=== PATIENT | male | born 1965 | race Hispanic/Latino ===

== ENCOUNTER → 2025-06-22 | Emergency (ER) | payer BC ==
[~2025-06-22] VITALS: Ht 172.7 cm; Wt 115.2 kg
[~2025-06-22] MED LIST: GUAI-904 PO; PRED15SO81 PO
[2025-06-22] MEDS: guaiFENesin-DM 200/20MG 10ML PO ONE (01:30)
[2025-06-22 01:37] LABS: IMMATURE GRANULOCYTE ABSOLUTE 0.08 K/uL (0-1); NUCLEATED RED BLOOD CELLS 0.0 % (0.0-0.19); PLATELET COUNT (AUTO) 187 K/uL (130-400); RED BLOOD CELL COUNT(AUTO) 4.93 MIL/uL (4.50-6.20); RED CELL DISTRIBUTION WIDTH 13.0 % (11.0-15.5); WHITE BLOOD COUNT (AUTO) 4.9 K/uL (4.8-10.8)
[2025-06-22 01:40] VITALS: PULSE 84; RESP 18
[2025-06-22 01:41] LABS: CREATININE 1.0 mg/dL (0.5-1.3); GLOMERULAR FILTR. RATE CALC 88.0 mL/min (>90); GLUCOSE,RANDOM 141.0 mg/dL (70-105); SODIUM SERUM 138.0 mmol/L (136-145); UREA NITROGEN, BLOOD 16.0 mg/dL (7-18)
--- NOTE | 2025-06-22 01:41 | ERN ---
ED Note History of Present Illness Stated Complaint: COUGH, SOB Chief Complaint: Shortness of Breath Time Seen by MD: 01:12 Dictation: 59-year-old male presented to the ER complaining of 3 days of cough, subjective fever 2 days ago. Denies chills. Stated that cough worsened with a deep inspiration. Allergies: Coded Allergies: No Known Allergies (Unverified Allergy, Unknown, 06/22/25) Home Meds Active Scripts Prednisolone Sod Phosphate (Prednisolone Sod Phosphate) 15 Mg/5 Ml (5 Ml) Solution, 30 MG PO BID for 3 Days, #60 ML Prov:KENDALL KHALIL MD 06/22/25 Guaifenesin/Dextromethorphan (Mucinex Dm ER 600-30 mg Tablet) 600 Mg-30 Mg Tab.er.12h, 1 TAB PO [id number] PRN for cough and congestion for 7 Days, #14 TAB 0 Refills Prov:KENDALL KHALIL MD 06/22/25 Past Medical History Past Medical History: Hypertension, Other Additional Past Medical Hx: NON COMPLIANT Surgical History: None Review of System Dictation NEGATIVE EXCEPT PER HPI Constitutional: Negative for fever,chills, and weight loss Eyes: Negative for injury, pain,redness, and discharge ENT: Negative for injury,pain or swelling Cardiovascular: denies chest pain, palpitations, and edema Respiratory: Shortness breath reports Abdomen/GI: Negative for abdominal pain, nausea, vomiting, diarrhea, and constipation Back: Negative for injury and pain : Negative for injury, bleeding and discharge MS/Extremity: Negative for injury and deformity Skin: Negative for rash, and discoloration Neuro: Negative for headache, weakness, numbness, tingling, and seizure Psych: Negative for suicide ideation, homicidal ideation, and hallucinations Initial Vital Sign VS Vital Signs Date Time Temp Pulse Resp B/P (MAP) Pulse Ox O2 Delivery O2 Flow Rate FiO2 06/22/25 01:07 98.8 87 20 164/94 97 Room Air 06/22/25 01:20 0 21 Physical Exam Dictation General: awake, alert, NAD Head/Face: Normocephalic, atraumatic Eyes: PERRL, EOMI, vision at baseline ENT: oral cavity clear, TMs clear, no signs of infection Neck: Trachea midline, supple, no nuchal rigidity Cardiovascular: RRR, normal S1/S2, No MRGs, no JVD Respiratory: CTAB, no respiratory distress, No rales or wheezes Abdomen: Soft , no tender Skin: Warm, dry, normal turgor, no rash MS/Extremity: Pulses equal, no cyanosis, neurovascular intact, FROM Neuro: COAx4, GCS 15, strength 5/5, CN 2-12 intact, normal cerebellar exam, normal gait, Psych: Normal behavior, mood, and affect normal Results (Laboratory/Radiology) Laboratory/Radiology Laboratory Tests Test 06/22/25 01:16 06/22/25 01:19 White Blood Count 4.9 K/uL (4.8-10.8) Red Blood Count 4.93 MIL/uL (4.50-6.20) Hemoglobin 14.0 g/dL (14.0-18.0) Hematocrit 42.2 % (42-54) Mean Corpuscular Volume 85.6 fL (79-99) Mean Corpuscular Hemoglobin 28.4 pg (27.0-33.0) Mean Corpuscular Hemoglobin Concent 33.2 g/dL (32.0-36.0) Red Cell Distribution Width 13.0 % (11.0-15.5) Platelet Count 187 K/uL (130-400) Mean Platelet Volume 9.8 fL (7.5-10.5) Immature Granulocyte % (Auto) 1.6 % (0-1) H Neutrophils (%) (Auto) 42.9 % (40.0-77.0) Lymphocytes (%) (Auto) 39.3 % (21.0-51.0) Monocytes (%) (Auto) 11.3 % (3.0-13.0) Eosinophils (%) (Auto) 4.3 % (0.0-8.0) Basophils (%) (Auto) 0.6 % (0.0-5.0) Neutrophils # (Auto) 2.1 K/uL (1.8-7.7) Lymphocytes # (Auto) 1.9 K/uL (1.0-4.8) Monocytes # (Auto) 0.6 K/uL (0.1-1.0) Eosinophils # (Auto) 0.21 K/uL (0.00-0.70) Basophils # (Auto) 0.03 K/uL (0.00-0.20) Absolute Immature Granulocyte (auto 0.08 K/uL (0-1) Segmented Neutrophils % 47 % (40-70) Lymphocytes % (Manual) 41 % (22-44) Monocytes % (Manual) 8 % (2-9) Eosinophils % (Manual) 3 % (1-6) Basophils % (Manual) 1 % (0-2) Nucleated Red Blood Cells 0.0 % (0.0-0.19) Differential Comment MANUAL DIFFERENTIAL White Cell Morphology Comment REACTIVE LYMPHS 1+ Platelet Morphology Comment See comments Red Blood Cell Morphology ANISO 1+ Sodium Level 138 mmol/L (136-145) Potassium Level 3.7 mmol/L (3.5-5.1) Chloride Level 103 mmol/L (101-111) Carbon Dioxide Level 25 mmol/L (21-32) Blood Urea Nitrogen 16 mg/dL (7-18) Creatinine 1.0 mg/dL (0.5-1.3) Glomerular Filtration Rate Calc 88 mL/min (>90) Random Glucose 141 mg/dL (70-105) H Total Calcium 8.1 mg/dL (8.5-10.1) L Troponin I High Sensitivity 5 ng/L (4-75) B-Type Natriuretic Peptide 22 pg/mL (0-100) Influenza Type A Antigen Negative For Type A Influenza Type B Antigen Negative For Type B SARS-CoV-2 Antigen (Rapid) PRESUMPTIVE NEGATIVE ED Course ED Course Orders Procedure Category Date Status Time Cbc With Differential LAB 06/22/25 Complete 01:09 Basic Metabolic Panel LAB 06/22/25 Complete 01:09 B-Type Natriuretic LAB 06/22/25 Complete Peptide 01:09 Troponin I High LAB 06/22/25 Complete Sensitivity 01:09 Chest 1vw RAD 06/22/25 Taken 01:09 Influenza Type A & B, LAB 06/22/25 Complete Rapid 01:13 Covid19 (Sars Antigen LAB 06/22/25 Complete Rapid) 01:13 Ipratropium/Albuterol PHA 06/22/25 Complete Neb (Duoneb) 01:30 Guaifenesin/Dextromethorphan PHA 06/22/25 Complete (Mucinex Dm 01:30 Guaifenesin-Dm PHA 06/22/25 Complete 200/20mg 10ml 01:30 Ipratropium/Albuterol PHA 06/22/25 Complete Neb (Duoneb) 02:00 Manual Differential LAB 06/22/25 Complete 01:16 Methylprednisolone PHA 06/22/25 Complete Succ 40mg (Solu-Medro 02:00 Current Medications Medications (Trade) Dose Ordered Sig/[place] Route PRN Reason Start Time Stop Time Status Last Admin Dose Admin Albuterol (DUOneb) 1 udvial ONCE ONCE IH 06/22/25 02:00 06/22/25 02:01 DC 06/22/25 01:39 Albuterol (DUOneb) 3 udvial ONCE ONCE IH 06/22/25 01:30 06/22/25 01:36 DC Guaifenesin/ Dextromethorphan (MUCinex DM 1 EACH TAB.SR.12H) 1 each ONCE ONCE PO 06/22/25 01:30 06/22/25 01:23 DC Guaifenesin/ Dextromethorphan (RobiTUSSin DM 200/20MG 10ML) 10 ml ONCE ONCE PO 06/22/25 01:30 06/22/25 01:31 DC 06/22/25 01:30 Methylprednisolone Sodium Succinate (Solu-medROL 40MG) 40 mg ONCE ONCE IVP 06/22/25 02:00 06/22/25 02:01 DC 06/22/25 02:06 Vital Signs Date Time Temp Pulse Resp B/P (MAP) Pulse Ox O2 Delivery O2 Flow Rate FiO2 06/22/25 01:40 84 18 06/22/25 01:20 88 18 164/92 97 Room Air* 0 21 06/22/25 01:07 98.8 87 20 164/94 97 Room Air Medical Decision Making MDM 59-year-old male with a past medical history of hypertension who presented with a cough x4 days with a subjective fever. Reports worsened cough with a deep inspiration. Differential: -pneumonia -influenza -COVID -reactive airway Laboratory ordered in triage including CBC, BMP, troponin Imagings x-ray is ordered of chest Ordered DuoNeb Ordered guaifenesin DX & DISP Disposition: Discharge Departure Impression: Primary Impression: Cough in adult Additional Impression: Reactive airway disease Condition: Stable Scripts Prednisolone Sod Phosphate (Prednisolone Sod Phosphate) 15 Mg/5 Ml (5 Ml) Solution 30 MG PO BID for 3 Days, #60 ML Prov: KENDALL KHALIL MD 06/22/25 Guaifenesin/Dextromethorphan (Mucinex Dm ER 600-30 mg Tablet) 600 Mg-30 Mg Tab.er.12h 1 TAB PO [id number] PRN for cough and congestion for 7 Days, #14 TAB 0 Refills Prov: KENDALL KHALIL MD 06/22/25 Additional Instructions: RETURN TO ER FOR ANY ACUTE OR WORSENING SYMPTOMS. FOLLOW-UP IN 1-2 DAYS WITH PRIMARY PROVIDER FOR RECHECK OF TODAY'S SYMPTOMS. Referrals: SELF,REFERRAL (PCP) Time of Disposition: 02:26 KENDALL KHALIL MD Jun 22, 2025 01:41
[2025-06-22 01:56] LABS: COVID19 (SARS ANTIGEN RAPID) PRESUMPTIVE NEGATIVE (NEGATIVE); INFLUENZA TYPE A Negative For Type A (NEGATIVE); INFLUENZA TYPE B Negative For Type B (NEGATIVE)
[2025-06-22 01:56] LABS: BASOPHILS % (MANUAL) 1 % (0-2); EOSINOPHILS % (MANUAL) 3 % (1-6); LYMPHOCYTES % (MANUAL) 41 % (22-44); MAN.DIFF COMMENT-IMPRESSION MANUAL DIFFERENTIAL; MONOCYTES % (MANUAL) 8 % (2-9); SEGMENTED NEUTROPHILS % 47 % (40-70); WBC MORPHOLOGY REACTIVE LYMPHS 1+
[2025-06-22] MEDS: Solu-medROL 40MG VIAL IVP ONE (02:06)
[2025-06-22 02:36] VITALS: BP 125/73; PULSE 74; RESP 18; TEMP 98.6; O2SAT 99
--- NOTE | 2025-06-22 02:36 | HMCIMG ---
EXAM: CR Chest, single view. CLINICAL HISTORY: Shortness of breath. COMPARISON: None FINDINGS: The lungs show no infiltrate or other acute findings. No pleural effusion or pneumothorax. The cardiomediastinal silhouette is within normal limits. No acute osseous abnormality. IMPRESSION: No acute cardiopulmonary pathology is evident. /[place]
== END | disposition home or self-care (01) ==
LOC: EDH 01:06
DX: J45.909 Unspecified asthma, uncomplicated (principal); I10 Essential (primary) hypertension; Z20.822 Contact with and (suspected) exposure to COVID-19
CPT/HCPCS: 99284; 96374; 71045; 87426; 84484; 80048; 83880; 85025; 87804 ×2; 36415; 94640; J2919